=== PATIENT | female | born 1970 | race Two or more races ===

== ENCOUNTER 2016-11-13 17:38 | Emergency (ER) | payer BC, OTHER ==
[2016-01-15 11:54] VITALS: BMI 33.6
[~2016-11-13 17:38] MED LIST: TOPROL XL25 MG PO
[2016-11-13 18:23] LABS: BASOPHILS 0.2 % (0.0-2.0); EOSINOPHILS 1.8 % (0-7); HEMATOCRIT 40.4 % (36.0-48.0); HEMOGLOBIN 13.2 g/dL (12-16); IMMATURE GRANULOCYTES 0.3 % (0-5); LYMPHOCYTES 34.3 % (15-50); MCH 32.3 pg (26.0-34.0); MCHC 32.7 g/dL (31.0-37.0); MCV 98.8 fL (80.0-100.0); MEAN PLATELET VOLUME 9.7 fL (7.4-10.4); MONOCYTES 5.6 % (2-11); NEUTROPHILS 57.8 % (40-80); PLATELET COUNT 300 10x3/uL (130-400); RBC 4.09 10x6/uL (4.00-5.40); RDW 12.5 % (11.5-14.5); WBC 10.4 10x3/uL (4.8-10.8)
[2016-11-13 18:41] LABS: ALBUMIN 3.3 g/dL (3.4-5.0); ALKALINE PHOSPHATASE 68 U/L (46-116); ALT (SGPT) 29 U/L (10-68); BILIRUBIN - TOTAL 0.33 mg/dL (0.2-1.3); CALC OSMOLALITY 281 mosm/kg (275-300); CARBON DIOXIDE 24.3 mmol/L (21.0-32.0); CHLORIDE - SERUM 107 mmol/L (98-107); CREATININE - SERUM 0.7 mg/dL (0.6-1.3); GLUCOSE 91 mg/dL (74-106); POTASSIUM - SERUM 3.8 mmol/L (3.5-5.1); PROTEIN - SERUM 6.6 g/dL (6.4-8.2); SODIUM 141 mmol/L (136-145); UREA NITROGEN 14 mg/dL (7-18); eGFR NON AFRICAN AMERICAN > 90 mL/min (90-120)
[2016-11-13 18:55] LABS: CHOL - HDL RATIO 2.5 ratio (2.3-4.1); CHOLESTEROL, TOTAL 145 mg/dL (0-200); CKMB 0.2 U/L (0.0-3.6); CREATINE KINASE 43 UL (21-215); HDL CHOLESTEROL 59 mg/dL (32-96); LDL CHOLESTEROL 73 mg/dL (0-100); LDL-HDL RATIO 1.2 ratio (1.5-3.5); TRIGLYCERIDE 68 mg/dL (30-200)
[2016-11-13 18:56] LABS: TROPONIN-I < 0.017 ng/mL (0.000-0.060)
== END 2016-11-13 20:00 | disposition home or self-care (01) ==
LOC: D.ER 17:38
PROVIDERS: Emergency Medicine
DX: R07.9 Chest pain, unspecified (principal); I10 Essential (primary) hypertension

== ENCOUNTER → 2017-05-21 12:34 | Outpatient (CLI) | payer BC, OTHER ==
[2016-01-15 11:54] VITALS: BMI 33.6
== END | disposition home or self-care (01) ==
LOC: D.MRI 12:34
DX: S53.015A Anterior dislocation of left radial head, initial encounter (principal)

== ENCOUNTER → 2017-11-09 14:06 | Outpatient (CLI) | payer OTHER ==
[2016-01-15 11:54] VITALS: BMI 33.6
== END | disposition home or self-care (01) ==
LOC: D.MRI 14:06
DX: M54.12 Radiculopathy, cervical region (principal)

== ENCOUNTER 2017-12-22 22:15 | Emergency (ER) | payer OTHER ==
[2016-01-15 11:54] VITALS: BMI 33.6
[2017-12-22 23:19] LABS: BASOPHILS 0.3 % (0-2); EOSINOPHILS 3.6 % (0-7); HEMATOCRIT 39.4 % (36.0-48.0); IMMATURE GRANULOCYTES 0.3 % (0-5); LYMPHOCYTES 52.9 % (15-50); MCH 32.8 pg (26.0-34.0); MCV 99.5 fL (80.0-100.0); MEAN PLATELET VOLUME 9.7 fL (7.4-10.4); MONOCYTES 6.4 % (2-11); NEUTROPHILS 36.5 % (40-80); PLATELET COUNT 284 10x3/uL (130-400); RBC 3.96 10x6/uL (4.00-5.40); RDW 12.5 % (11.5-14.5); WBC 7.7 10x3/uL (4.8-10.8)
[2017-12-22 23:31] LABS: APTT 24.9 SECONDS (22.8-39.4); INR 0.85 (0.85-1.17); PROTIME 11.3 SECONDS (11.6-15.0)
[2017-12-22 23:32] LABS: ALBUMIN 3.2 g/dL (3.4-5.0); ALKALINE PHOSPHATASE 88 U/L (46-116); ALT (SGPT) 34 U/L (10-68); BILIRUBIN - TOTAL 0.16 mg/dL (0.2-1.3); CALC OSMOLALITY 278 mosm/kg (275-300); CALCIUM 8.4 mg/dL (8.5-10.1); CARBON DIOXIDE 24.7 mmol/L (21.0-32.0); CHLORIDE - SERUM 107 mmol/L (98-107); CREATININE - SERUM 0.7 mg/dL (0.6-1.3); GLUCOSE 92 mg/dL (74-106); POTASSIUM - SERUM 3.9 mmol/L (3.5-5.1); PROTEIN - SERUM 6.4 g/dL (6.4-8.2); SODIUM 139 mmol/L (136-145); UREA NITROGEN 16 mg/dL (7-18); eGFR NON AFRICAN AMERICAN > 90 mL/min (90-120)
[2017-12-22 23:41] LABS: D-DIMER-QUANTITATIVE < 0.27 ug/mLFEU (0.20-0.54)
[2017-12-22 23:47] LABS: CKMB 0.2 U/L (0.0-3.6); CREATINE KINASE 36 UL (21-215); PRO BNP 171 pg/mL (0-125)
[2017-12-22 23:49] LABS: TROPONIN-I < 0.017 ng/mL (0.000-0.060)
== END 2017-12-23 01:22 | disposition home or self-care (01) ==
LOC: D.ER 22:15
PROVIDERS: Family Medicine
DX: I10 Essential (primary) hypertension (principal); F17.200 Nicotine dependence, unspecified, uncomplicated

== ENCOUNTER → 2017-12-29 17:47 | Outpatient (CLI) | payer OTHER ==
[2016-01-15 11:54] VITALS: BMI 33.6
== END | disposition home or self-care (01) ==
LOC: D.MAMMO 15:45
DX: Z12.31 Encounter for screening mammogram for malignant neoplasm of breast (principal)

== ENCOUNTER 2019-08-07 08:00 | Outpatient (CLI) | payer OTHER ==
[2016-01-15 11:54] VITALS: BMI 33.6
== END 2019-08-07 23:59 | disposition home or self-care (01) ==
LOC: D.MAMMO 08:00
PROVIDERS: ATTEND Nurse Practitioner Family
DX: N63.22 Unspecified lump in the left breast, upper inner quadrant (principal)

== ENCOUNTER 2019-10-27 15:20 | Observation (INO) | payer OTHER ==
[~2019-10-27] VITALS: Ht 167.6 cm; Wt 93.2 kg
[2019-10-27 16:08] LABS: BASOPHILS 0.1 % (0-2); EOSINOPHILS 1.8 % (0-7); HEMATOCRIT 42.9 % (36.0-48.0); HEMOGLOBIN 14.1 g/dL (12-16); IMMATURE GRANULOCYTES 0.1 % (0-5); LYMPHOCYTES 42.3 % (15-50); MCH 32.8 pg (26.0-34.0); MCHC 32.9 g/dL (31.0-37.0); MCV 99.8 fL (80.0-100.0); MEAN PLATELET VOLUME 10.1 fL (7.4-10.4); MONOCYTES 5.7 % (2-11); PLATELET COUNT 271 10x3/uL (130-400); RDW 12.5 % (11.5-14.5); WBC 7.9 10x3/uL (4.8-10.8)
[2019-10-27 16:18] LABS: APTT 26.4 SECONDS (22.8-39.4); INR 0.93 (0.85-1.17)
[2019-10-27 16:22] LABS: CALC OSMOLALITY 283 mosm/kg (275-300); CALCIUM 8.6 mg/dL (8.5-10.1); CARBON DIOXIDE 22.8 mmol/L (21.0-32.0); CHLORIDE - SERUM 109 mmol/L (98-107); CREATININE - SERUM 0.8 mg/dL (0.6-1.3); GLUCOSE 106 mg/dL (74-106); POTASSIUM - SERUM 4.2 mmol/L (3.5-5.1); SODIUM 142 mmol/L (136-145); UREA NITROGEN 16 mg/dL (7-18); eGFR NON AFRICAN AMERICAN 80 mL/min (90-120)
[2019-10-27 16:41] VITALS: BP 139/70
[2019-10-27 16:41] LABS: ALBUMIN 3.4 g/dL (3.4-5.0); ALKALINE PHOSPHATASE 83 U/L (46-116); ALT (SGPT) 45 U/L (10-68); CKMB 0.2 U/L (0.0-3.6); CREATINE KINASE 40 UL (21-215); MAGNESIUM - SERUM 2.2 mg/dL (1.8-2.4); PROTEIN - SERUM 6.9 g/dL (6.4-8.2)
[2019-10-27 16:42] LABS: TROPONIN-I < 0.017 ng/mL (0.000-0.060)
--- NOTE | 2019-10-27 19:05 | NUR ---
ADMIT TO ROOM 2119 FROM ER. ALERT/ORIENTED. ADMISSION ASSESSMENT AND HISTORY COMPLETED. HOME MEDS UPDATED. TELEMETRY INITIATED. SR 84. PLAN OF CARE INITIATED.
[2019-10-27] MEDS ORDERED: LOPRESSOR25 MG PO (22:41)
[2019-10-27] MEDS ORDERED: TOPROL XL25 MG PO (22:43)
[2019-10-27 22:55] LABS: CKMB 0.4 U/L (0.0-3.6); CREATINE KINASE 42 UL (21-215); TROPONIN-I < 0.017 ng/mL (0.000-0.060)
[2019-10-27 23:18] VITALS: BP 136/83; Ht 167.6 cm; Wt 93.2 kg
[2019-10-28] VITALS: BP 140/78
[2019-10-28 04:00] VITALS: BP 110/56
[2019-10-28 05:36] LABS: BASOPHILS 0.1 % (0-2); EOSINOPHILS 4.7 % (0-7); HEMATOCRIT 40.2 % (36.0-48.0); HEMOGLOBIN 13.1 g/dL (12-16); IMMATURE GRANULOCYTES 0.3 % (0-5); LYMPHOCYTES 50.4 % (15-50); MCH 32.8 pg (26.0-34.0); MCHC 32.6 g/dL (31.0-37.0); MCV 100.5 fL (80.0-100.0); MEAN PLATELET VOLUME 10.8 fL (7.4-10.4); MONOCYTES 7.2 % (2-11); NEUTROPHILS 37.3 % (40-80); PLATELET COUNT 250 10x3/uL (130-400); RDW 12.6 % (11.5-14.5); WBC 7.9 10x3/uL (4.8-10.8)
[2019-10-28 06:06] LABS: ALKALINE PHOSPHATASE 84 U/L (46-116); ALT (SGPT) 37 U/L (10-68); BILIRUBIN - TOTAL 0.23 mg/dL (0.2-1.3); CALCIUM 8.5 mg/dL (8.5-10.1); CARBON DIOXIDE 24.8 mmol/L (21.0-32.0); CHLORIDE - SERUM 109 mmol/L (98-107); CREATINE KINASE 36 UL (21-215); CREATININE - SERUM 0.8 mg/dL (0.6-1.3); GLUCOSE 110 mg/dL (74-106); MAGNESIUM - SERUM 2.2 mg/dL (1.8-2.4); POTASSIUM - SERUM 4.1 mmol/L (3.5-5.1); PROTEIN - SERUM 6.1 g/dL (6.4-8.2); SODIUM 143 mmol/L (136-145); eGFR NON AFRICAN AMERICAN 80 mL/min (90-120)
[2019-10-28 06:13] LABS: CALC OSMOLALITY 288 mosm/kg (275-300); TROPONIN-I < 0.017 ng/mL (0.000-0.060); UREA NITROGEN 21 mg/dL (7-18)
[2019-10-28 07:56] VITALS: BP 141/57
[2019-10-28] MEDS ORDERED: METOPROLOL TART25 MG PO (09:19)
[2019-10-28] MEDS ORDERED: LOPRESSOR25 MG PO (09:20)
--- NOTE | 2019-10-28 10:13 | NUR ---
GONE FOR 2ND HALF STRESS TEST. WILL CONT. PLAN OF CARE.
[2019-10-28 11:19] VITALS: BP 123/71
--- NOTE | 2019-10-28 12:57 | NUR ---
SPOKE WITH PT REGARDING REFERRAL TO [place] [facility]. SHE DECLINED.
--- NOTE | 2019-10-28 13:20 | NUR ---
IV AND TELEMETRY DCD. DC PLANS GIVEN. UNDERSTANDING VOICED. ESCORTED TO CAR BY W/C.
== END 2019-10-28 13:20 | disposition home or self-care (01) ==
LOC: D.ER 15:20 → D.M2 17:10 → OBSVTIME 17:10 → D.M2 10-28 13:20
PROVIDERS: Family Medicine; ADMIT Family Medicine; ATTEND Family Medicine
DX: I20.0 Unstable angina (principal); I10 Essential (primary) hypertension; F17.203 Nicotine dependence unspecified, with withdrawal